=== PATIENT | male | born 1975 | race Caucasian/White ===

== ENCOUNTER 2017-01-26 | Emergency (ER) | payer OTHER ==
--- NOTE | 2017-01-26 00:28 | ERPHSYRPT ---
- History of Present Illness Time Seen by Provider: 01/26/17 00:22 Historian: patient Exam Limitations: no limitations Patient Subjective Stated Complaint: PT STATES HE HAS A "FULL FEELING" IN HIS CHEST, REPORTS A FEVER FOR THE LAST 2 DAYS, ALSO REPORTS A PRODUCTIVE COUGH. Triage Nursing Assessment: PT IS AOX3, AMBULATORY TO COT WITH SOME EXERTION, SKIN IS FLUSHED WARM AND DRY, PULSES ARE STRONG AND EQUAL, RESPS ARE EASY AT REST WITH SOME EXERTIONAL SHORTNESS OF BREATH, PRODUCTIVE COUGH PRESENT WITH CLEAR SPUTUM, WHEEZES AUSCULTATED BILAT POSTERIOR LUNGS, HEART SOUNDS ARE NORMAL. PAIN REPORTED A FULL FEELING TO THE CENTER OF THE CHEST. Physician History: Pt. with productive green sputum for past 3-4 days, then notice today with center/substenal pain. State CP is tight, localized, intermittent and worse with cough. Pt. felt hot this AM along with dizziness, myalgia, chills, took Ibuprofen 400mg with relief of symptoms. Pt. is 1 PPD smoker for over 25 years. Timing/Duration: day(s) (4) Activities at Onset: none Quality: tightness Location: substernal Chest Pain Radiation: no radiation Severity of Pain-Max: mild Severity of Pain-Current: mild Modifying Factors: Improves With: coughing (worsens) Associated Symptoms: shortness of breath, cough, hurts to breathe, fever, weakness, No nausea, No vomiting, No palpitations Prior Chest Pain/Cardiac Workup: no prior chest pain Nitro Today/Relief: no nitro taken today Aspirin Treatment Today: no aspirin today Allergies/Adverse Reactions: No Known Drug Allergies Allergy (Verified 01/26/17 00:13) Hx Tetanus, Diphtheria Vaccination/Date Given: No Hx Influenza Vaccination/Date Given: No Hx Pneumococcal Vaccination/Date Given: No Immunizations Up to Date: Yes - Review of Systems Constitutional: Fever, Chills, Fatigue, Weakness Eyes: No Symptoms Ears, Nose, & Throat: No Symptoms Respiratory: Cough, Dyspnea Cardiac: Chest Pain, No Edema, No Syncope Abdominal/Gastrointestinal: No Symptoms, No Abdominal Pain, No Nausea, No Vomiting, No Diarrhea Genitourinary Symptoms: No Symptoms, No Dysuria Musculoskeletal: No Symptoms, No Back Pain, No Neck Pain Skin: No Symptoms, No Rash Neurological: No Symptoms, No Dizziness, No Focal Weakness, No Sensory Changes Psychological: No Symptoms Endocrine: No Symptoms All Other Systems: Reviewed and Negative - Past Medical History Pertinent Past Medical History: No - Past Surgical History Past Surgical History: Yes Musculoskeletal: Other Other Surgical History: SURGERY TO ARM A CHILD - Social History Smoking Status: Current every day smoker How long have you smoked: 25YRS Exposure to second hand smoke: Yes Drug Use: marijuana Patient Lives Alone: No - Nursing Vital Signs Nursing Vital Signs: Initial Vital Signs Temperature 100.9 F Temperature Source Oral Pulse Rate [Bilateral Radial] 94 Pulse Rate 86 Respiratory Rate 24 Blood Pressure [Right Arm] 146/83 Pain Intensity 7 - Physical Exam General Appearance: no apparent distress, alert Eye Exam: PERRL/EOMI, eyes nml inspection Ears, Nose, Throat Exam: normal ENT inspection, moist mucous membranes Neck Exam: normal inspection, non-tender, supple, full range of motion Respiratory Exam: lungs clear, diminished breath sounds (throughout), rhonchi, wheezing, No respiratory distress Cardiovascular Exam: regular rate/rhythm, normal heart sounds Gastrointestinal/Abdomen Exam: soft, No tenderness, No mass Back Exam: normal inspection, No CVA tenderness, No vertebral tenderness Extremity Exam: normal inspection, normal range of motion Neurologic Exam: alert, oriented x 3, cooperative, normal mood/affect, sensation nml, No motor deficits Skin Exam: normal color, warm, dry SpO2 Interpretation: normal SpO2: 96 Oxygen Delivery: Room Air - Course Nursing assessment & vital signs reviewed: Yes EKG Interpreted by Me: RATE ([id number]), Sinus Rhythm, NORMAL AXIS, NORMAL INTERVALS, NORMAL QRS, NORMAL ST-T - Radiology Exams Chest X-ray Interpretation: Interpreted by me, Infiltrates (?R perihiar area) Ordered Tests: Active Orders 24 hr Category Date Time Status EKG-ER Only STAT Care 01/26/17 00:32 Active CHEST 2 VIEWS (PA AND LAT) Stat Exams 01/26/17 00:32 Taken Respiratory Nebulizer STAT RT 01/26/17 00:33 Completed Medication Summary Discontinued Medications Generic Name Dose Route Start Last Admin Trade Name Freq PRN Reason Stop Dose Admin Albuterol/Ipratropium 3 ml 01/26/17 00:32 01/26/17 00:57 Duoneb 0.5-3 Mg/3 Ml Neb IH 01/26/17 00:33 3 ml STAT ONE Administration Albuterol/Ipratropium Confirm 01/26/17 00:56 Duoneb 0.5-3 Mg/3 Ml Neb Administered 01/26/17 00:57 Dose 3 ml IH .STK-MED ONE Prednisone 60 mg 01/26/17 00:32 01/26/17 00:55 Deltasone 20 Mg PO 01/26/17 00:33 60 mg STAT ONE Administration Prednisone Confirm 01/26/17 00:54 Deltasone 20 Mg Administered 01/26/17 00:55 Dose 60 mg .ROUTE .STK-MED ONE - Progress Progress: improved Air Movement: good Progress Note: 01/26/17 00:31 Pt. given Dounebs, Prednisone, with good relief of symptoms Blood Culture(s) Obtained: No Antibiotics given: No Counseled pt/family regarding: lab results, diagnosis, rad results - Departure Time of Disposition: :28 Departure Disposition: Home Clinical Impression: Bronchitis Condition: Stable Critical Care Time: No Instructions: Bronchitis, Pleurisy Additional Instructions: RX: Levaquin, Proventil, Prednisone Return for worse cough, chest pain, fever, short of breath or any problems. Prescriptions: Albuterol Common Canister [Proventil Common Canister] 2 puff IH Q4-6HPRN PRN #1 puff PRN Reason: Shortness Of Breath Levofloxacin [Levaquin] 500 mg PO DAILY #10 tablet Prednisone 20 mg [Deltasone 20 mg] 60 mg PO DAILY #15 tablet
[2017-01-26] MEDS ORDERED: DELTASONE 20 MG PO ONE (00:32)
[2017-01-26] MEDS ORDERED: DUONEB 0.5-3 MG/3 ml Neb IH ONE ×2 (00:32→00:56)
[2017-01-26] MEDS ORDERED: DELTASONE 20 MG ONE (00:54)
[2017-01-26] MEDS ORDERED: Levofloxacin 250MG Tablet PO ONE (01:39)
[2017-01-26] MEDS ORDERED: Levofloxacin 250MG Tablet ONE (01:42)
[2017-01-26 02:03] VITALS: BP 111/67; PULSE 84; O2SAT 98
--- NOTE | 2017-01-29 13:22 | XRAY ---
Exam: Two-view chest series from 01/26/2017. Comparison: None. Indication: Cough. Findings: This exam was inadvertently not dictated by the radiologist on 01/26/2017. The images have been submitted to me for formal interpretation on 01/29/2017. Upright PA and lateral chest films are submitted for evaluation. The heart size and contour are normal. Inflation of the lungs is average. No pulmonary vascular congestion is seen. The marcelino and mediastinal structures appear unremarkable. EKG leads are seen in place. There is some focal airspace disease projected near the left costovertebral angle behind the heart measuring about 5.0 cm in height and 3.5 cm in width. Given the patient's history, this is concerning for focal left lower lobe pneumonia. The contour of this density speaks against a retrocardiac hiatal hernia. The density is better seen on the PA film than the lateral film, although there are mild increased markings appreciated within the infrahilar projections posteriorly on the lateral image. No pneumothorax or pleural effusion is seen. The visualized bones appear intact. Impression: 1. Small focal airspace infiltrate at medial left lung base behind the heart suggestive of focal left lower lobe pneumonia.
== END 2017-01-26 02:02 | disposition home or self-care (01) ==
LOC: ED
DX: J40 Bronchitis, not specified as acute or chronic (principal); R50.9 Fever, unspecified; R05 Cough; R07.89 Other chest pain
CPT/HCPCS: 71020; 93005; 94640; 99283; 99284; A9270-GY; J7506